=== PATIENT | female | born 1985 | race Two or more races ===

== ENCOUNTER 2018-01-18 17:37 | Emergency (ER) | payer MEDICAID ==
[~2018-01-18] VITALS: Ht 152.4 cm; Wt 78.4 kg
[2018-01-18 17:46] VITALS: BP 131/80
== END 2018-01-18 18:55 | disposition home or self-care (01) ==
LOC: ED 18:01
DX: M25.571 Pain in right ankle and joints of right foot (principal); G89.11 Acute pain due to trauma
CPT/HCPCS: 99284

== ENCOUNTER 2018-05-23 18:38 | Emergency (ER) | payer MEDICAID ==
[~2018-05-23] VITALS: Ht 152.4 cm; Wt 73.9 kg
[2018-05-23 18:41] VITALS: BP 122/76
[2018-05-23] MEDS ORDERED: HYDROcodone/APAP 5/325 TABLET PO STA (19:05)
[2018-05-23] MEDS ORDERED: HYDROcodone/APAP 5/325 TABLET ONE (19:13)
[2018-05-23] MEDS ORDERED: ONDANSETRON ODT 4 MG ONE (19:13)
[2018-05-23 19:19] LABS: MICROSCOPIC AUTO
[2018-05-23 19:20] LABS: CULTURE INDICATED? YES
[2018-05-23] MEDS ORDERED: ONDANSETRON ODT 4 MG PO ONE (19:30)
[2018-05-23 19:39] LABS: BASOPHILS # (AUTO) 0.04 x10^3/uL (0-0.1); BASOPHILS % (AUTO) 0 % (0-1); EOSINOPHILS # (AUTO) 0.21 x10^3/uL (0-0.4); EOSINOPHILS % (AUTO) 2 % (1-7); LYMPHOCYTES # (AUTO) 2.45 x10^3/uL (1-3.4); LYMPHOCYTES % (AUTO) 24 % (22-44); MD NO; MEAN CORPUSCULAR HEMOGLOBIN 29.6 pg (27.0-34.8); MEAN CORPUSCULAR VOLUME 84.7 fL (80-100); MEAN PLATELET VOLUME 8.8 fL (7.4-10.4); MONOCYTES # (AUTO) 0.73 x10^3/uL (0.2-0.8); MONOCYTES % (AUTO) 7 % (2-9); NEUTROPHILS # (AUTO) 6.82 x10^3/uL (1.8-6.8); NEUTROPHILS % (AUTO) 67 % (42-75); PLATELET COUNT 220 x10^3/uL (130-400); RED BLOOD COUNT 4.04 x10^6/uL (3.82-5.3); RED CELL DISTRIBUTION WIDTH 13.3 % (9.6-15.2)
[2018-05-23 19:50] LABS: ALANINE AMINOTRANSFERASE 17 U/L (12-78); ALBUMIN 3.2 g/dL (3.4-5.0); ANION GAP 8 mmol/L (5-15); CALCIUM 8.4 mg/dL (8.5-10.1); CHLORIDE 109 mmol/L (98-107); CREATININE 0.91 mg/dL (0.55-1.02)
[2018-05-23 19:54] LABS: ALKALINE PHOSPHATASE 75 U/L (45-117); BILIRUBIN,TOTAL 0.2 mg/dL (0.2-1.0); TOTAL PROTEIN 6.9 g/dL (6.4-8.2)
== END 2018-05-23 20:31 | disposition home or self-care (01) ==
LOC: ED 19:54
DX: M54.9 Dorsalgia, unspecified (principal)
CPT/HCPCS: 36415; 80053; 81001; 84703; 85025; 87077; 87086; 87186; 99284; Q0162